=== PATIENT | female | born 1995 | race Caucasian/White ===

== ENCOUNTER 2018-06-22 21:50 | Emergency (ER) | payer OTHER ==
[~2018-06-22] VITALS: Ht 162.6 cm; Wt 121.4 kg
[~2018-06-22 21:50] MED LIST: AMOXICILLIN500 MG PO; AMOXICILLIN875 MG OR; FLONASE SPRAY50 MCG; ZITHROMAX250 MG PO
[2018-06-22 22:39] LABS: HEMATOCRIT 40.2 % (37.0-47.0); HEMOGLOBIN 13.4 g/dl (12.0-16.0); IMMATURE GRANULOCYTES 0.4 % (0.0-5.0); MEAN CELL VOLUME 93.9 fL CALC (80.0-100.0); MEAN CORPUSCULAR HGB 31.3 pG CALC (26.0-32.0); MEAN CORPUSCULAR HGB CONC 33.3 g/L CALC (32.0-36.0); NEUT# 8.13 thou/uL (2.00-7.15); RED BLOOD COUNT 4.28 mill/uL (4.20-5.60); RED CELL DISTRI WIDTH 12.8 % (11.5-15.5)
[2018-06-22 22:49] LABS: INFLUENZA A NONE DETECTED (NONE DETECT); INFLUENZA B NONE DETECTED (NONE DETECT)
[2018-06-22 23:30] VITALS: BP 124/86
== END 2018-06-22 23:39 | disposition home or self-care (01) ==
LOC: ED 21:50
PROVIDERS: Family Medicine
DX: B34.9 Viral infection, unspecified (principal); R52 Pain, unspecified; R51 Headache; J02.9 Acute pharyngitis, unspecified; R09.81 Nasal congestion; R50.9 Fever, unspecified; H92.09 Otalgia, unspecified ear

== ENCOUNTER 2018-06-25 10:52 | Emergency (ER) | payer OTHER ==
[~2018-06-25] VITALS: Ht 162.6 cm; Wt 122.7 kg
[2018-06-25 12:15] VITALS: BP 144/81
== END 2018-06-25 12:15 | disposition home or self-care (01) ==
LOC: ED 10:52
DX: S00.412A Abrasion of left ear, initial encounter (principal); I10 Essential (primary) hypertension; X58.XXXA Exposure to other specified factors, initial encounter; H92.02 Otalgia, left ear

== ENCOUNTER 2018-12-21 08:34 | Emergency (ER) | payer BC ==
[~2018-12-21] VITALS: Ht 162.6 cm; Wt 100.0 kg
[2018-12-21] MEDS ORDERED: AMOX/K CLAV875 M1 PO (10:42)
[2018-12-21] MEDS ORDERED: CORTISPORIN OTI10 ML AD (10:42)
[2018-12-21 10:52] VITALS: BP 137/74
== END 2018-12-21 10:52 | disposition home or self-care (01) | DRG 153 ==
LOC: ED 08:34
DX: H66.91 Otitis media, unspecified, right ear (principal); J02.9 Acute pharyngitis, unspecified; I10 Essential (primary) hypertension

== ENCOUNTER 2019-05-26 05:33 | Emergency (ER) | payer BC ==
[~2019-05-26] VITALS: Ht 162.6 cm; Wt 122.7 kg
[~2019-05-26 05:33] MED LIST changes: +AMOX/K CLAV875 M1 PO; +CORTISPORIN OTI10 ML AD
[2019-05-26] MEDS ORDERED: AMOXICILLIN500 MG PO (05:51)
[2019-05-26 06:00] VITALS: BP 131/67
== END 2019-05-26 06:00 | disposition home or self-care (01) | DRG 153 ==
LOC: ED 05:33
DX: J02.9 Acute pharyngitis, unspecified (principal)